=== PATIENT | male | born 1960 | race Native Hawaiian/Other Pacific Islander ===

== ENCOUNTER 2019-03-25 10:37 | Outpatient (CLI) | payer OTHER ==
[~2019-03-25 10:37] MED LIST: GLIM4TAB PO; LISITAB PO; LOVA20TA PO; METFORMIN ER1000 MG PO
[2019-03-25 11:03] LABS: PLATELET COUNT 231 K/uL (142-355)
[2019-03-25 11:14] LABS: POTASSIUM 4.1 mmol/L (3.6-5.2)
== END 2019-03-25 21:40 | disposition home or self-care (01) ==
LOC: LABW 10:37
DX: E11.29 Type 2 diabetes mellitus with other diabetic kidney complication (principal); I63.511 Cerebral infarction due to unspecified occlusion or stenosis of right middle cerebral artery
CPT/HCPCS: 36415; 80053; 80061; 83036; 85027